=== PATIENT | female | born 1995 | race Caucasian/White ===

== ENCOUNTER 2023-07-07 10:16 | Emergency (ER) | payer SELFPAY ==
[2023-07-07] MEDS: Lidocaine/Epineph/Tetracaine 3 ML Syringe TOP ONE (11:09)
== END 2023-07-07 11:47 | disposition home or self-care (01) ==
LOC: MW.ED 10:16
DX: L03.012 Cellulitis of left finger (principal); Z88.0 Allergy status to penicillin; Z88.1 Allergy status to other antibiotic agents
CPT/HCPCS: 10060; 99283; A9270

== ENCOUNTER 2023-08-09 11:43 | Emergency (ER) | payer SELFPAY ==
[2023-08-09 12:38] LABS: CORONAVIRUS COVID-19 NAA NEGATIVE (NEGATIVE); INFLUENZA A NAA NEGATIVE (NEGATIVE); INFLUENZA B NAA POSITIVE (NEGATIVE); RESPIRATORY SYNCYTIAL VIR NAA NEGATIVE (NEGATIVE)
== END 2023-08-09 13:21 | disposition home or self-care (01) ==
LOC: MW.ED 11:43
DX: J10.1 Influenza due to other identified influenza virus with other respiratory manifestations (principal); Z75.8 Other problems related to medical facilities and other health care; Z88.1 Allergy status to other antibiotic agents; Z88.0 Allergy status to penicillin; Z79.899 Other long term (current) drug therapy
CPT/HCPCS: 0241U; 71045; 99283